=== PATIENT | female | born 1960 | race Caucasian/White ===

== ENCOUNTER 2024-04-17 14:16 | Emergency (ER) | payer OTHER, SELFPAY ==
[2024-04-17 14:35] VITALS: BP 121/86
[2024-04-17 15:04] LABS: % Eosinophils 5.5 % (0-6); % Immature Granulocytes 0.2 % (0-0.5); % Lymphocytes 41.3 % (20.5-51.1); % Monocytes 7.9 % (1.7-9.3); % Neutrophils 44.1 % (42.2-75.2); Absolute Basophils 0.1 10^3/uL (0-0.2); Absolute Eosinophils 0.5 10^3/uL (0-0.7); Absolute Lymphocytes 3.8 10^3/uL (1.2-3.4); Absolute Monocytes 0.7 10^3/uL (0.1-0.6); Hematocrit 40.3 % (37.0-47.0); Hemoglobin 13.2 g/dL (12.0-16.0); Mean Corp Hgb Conc. 32.8 g/dL (33.0-37.0); Mean Corpuscular Hgb 28.9 pg (27.0-31.0); Mean Corpuscular Volume 88.2 fL (81.0-99.0); Mean Platelet Volume 8.9 fL (7.4-10.4); Nucleated Red Blood Cells % 0 %; Platelet Count 355 10^3/uL (130-400); Red Blood Cell Count 4.57 10^6/uL (4.20-5.40); Red Cell Dist. Width 12.4 % (11.5-14.5); White Blood Cell Count 9.2 10^3/uL (4.8-10.8)
[2024-04-17 15:13] LABS: ALT (SGPT) 35 U/L (0-35); AST (SGOT) 50 U/L (14-36); Albumin 4.7 g/dl (3.5-5.0); Alkaline Phosphatase 72 U/L (38-126); Blood Urea Nitrogen 17 mg/dl (7-17); Calcium 9.8 mg/dl (8.4-10.2); Carbon Dioxide 28 mmol/L (22-30); Chloride 102 mmol/L (98-107); Glucose 97 mg/dl (70-99); Potassium 4.9 mmol/L (3.5-5.1); Sodium 139 mmol/L (135-145); Total Bilirubin 0.7 mg/dl (0.2-1.3); Total Protein 7.3 g/dl (6.3-8.2); eGFR > 60.00
[2024-04-17 16:50] VITALS: BP 126/76
[2024-04-17 21:56] VITALS: BMI 34.4
--- NOTE | 2024-04-17 21:58 | EDRN ---
Pt has had a wound on L great toe for 1 month. Pt is not on an abx. Pt says it started getting worse on the . Pt is diabetic. Pt stopped wearing certain boot that caused the wound. Pt says it is excruciatingly painful. No fever/chills.
[2024-04-17 22:02] VITALS: BP 128/76
--- NOTE | 2024-04-17 23:14 | ED.SKININJ ---
HPI-Injury
General
Chief Complaint: Skin Problem
Source: patient
Exam Limitations: none
Time Seen by Provider: 04/17/24 19:13
Nursing documentation reviewed up to this point in time: agreed with
History of Present Illness-Injury
Is this injury a work related problem?: No
Is pt an associate of [facility]?: No
Initial Injury comments:
Patient to ED with complaint of painful wouond to lateral left great toe. Wound developed approx 1 mos ago. States she recently moved here from [facility]. No PCP here. Denies fever/chills. Brought self to ED for eval
Past History
Past History
ED Past Medical History: COPD, NIDDM and Hypothyroidism
Review of Systems
Review of Systems
Allergies reviewed?: Yes
All Other Systems: ROS reviewed and negative except as documented in HPI and ROS
Constitutional: Reports no symptoms
EENT: Reports no symptoms
Respiratory: Reports no symptoms
Cardiac: Reports no symptoms
Musculoskeletal: Reports joint pain (Pain to left distal great toe.)
Skin: Reports other (1cm open wouond left lateral great toe. No drainage noted. Mild erythema surrounding ulceration. Would culture sent.)
Neurological: Reports no symptoms
Psychiatric: Reports no symptoms
Phy Exam
General Physical Exam
General Presentation: well appearing and no apparent distress
General age: appears stated age
General Skin: warm and dry
General Habitus: normal
General Mental: alert
Musculoskeletal Exam
Musculoskeletal Exam: full ROM and neuro vasc intact
Skin Exam
Skin Exam: warm/dry and other (1cm open wound left lat great toe. No drainage. MIld erythema surrounding wound WOund culture obtained)
Psychiatric Exam
Psychiatric Exam: normal mood/affect
Course
Orders/Labs/Results
Orders:
Orders
04/17/24 14:48
CMP [Comprehensive Metabolic Panel] Urgent
Complete Blood Count/With Diff Urgent
04/17/24 22:06
Foot, Left 3 View [CR Foot - Left Min 3 Views] Urgent
Comment:
Reason For Exam: cellulitis left 1st and 2nd toe
04/17/24 22:19
Wound Culture [Wound/Abscess/Other Culture] Urgent
MARI Source: Toe
Specimen Description:
Date Specimen was Collected: 04/17/24
Time Specimen was Collected: 22:09
04/17/24 23:02
Clindamycin HCl [Cleocin] 300 mg PO NOW STA
Abnormal Lab Results
04/17/24
14:48
MCHC 32.8 L g/dL
(33.0-37.0)
Absolute Lymphs (auto) 3.8 H 10^3/uL
(1.2-3.4)
Absolute Monos (auto) 0.7 H 10^3/uL
(0.1-0.6)
AST 50 H U/L
(14-36)
04/17/24 14:48
04/17/24 14:48
Vital Signs
Initial and Last Documented VS:
Initial Vital Signs
Temp Pulse Resp BP Pulse Ox
98.3 F 85 18 121/86 98
04/17/24 14:35 04/17/24 14:35 04/17/24 14:35 04/17/24 14:35 04/17/24 14:35
Last Documented Vital Signs
Temp Pulse Resp BP Pulse Ox
98.3 F 72 16 128/76 96
04/17/24 22:02 04/17/24 22:02 04/17/24 22:02 04/17/24 22:02 04/17/24 22:02
*Critical Care Note
Total Time (30-74mins, 75-104mins- exclusive of procedures): Not Applicable
Update Note
Update Note:
Patient to ED for eval of left great toe wound. Ulceration developed approx 1 mos ago. SHe does not have a healthcare provider here, has not had wound evaluated. She is afebrile. WBC normal. No drainage from wound. NO recent antibiotics.
Clindamycin given in ED, rx provided for her. SHe is discharged home and will follow up with wound care center. Given instructions on s/s to return to ED and she is agreeable to plan.
ED Attending Note
-
Portions of this chart may have been created with voice recognition software.� Occasional wrong word or��sound alike� substitutions may have occurred due to the inherent limitations of voice recognition software.
Discharge Plan
Departure
Patient Disposition: Home (Routine Discharge)
Date of Disposition: 04/17/24
Time of Disposition: 23:03
Patient with high blood pressure during this ER visit?: No
Condition: Good
Covid-19: Not Applicable
Discharge Problem:
Non-healing open wound of toe
Instructions: Wound Care (DC), [facility]
Prescriptions:
New
clindamycin HCl 300 mg capsule
300 mg PO TID Qty: 30 0RF
No Action
gabapentin 600 mg Tablet
600 mg PO TID
divalproex 500 mg Tablet,Delayed Release (Dr/Ec)
500 mg PO BID
aspirin 81 mg Tablet,Delayed Release (Dr/Ec)
81 mg PO DAILY
xyhtrmfgpu-ufjhdcywuczqb-lpsc 50-325-40 mg Tablet
1 tab PO BID PRN (Reason: headache)
hydrocodone-acetaminophen 7.5-325 mg Tablet
1 tab PO TID PRN (Reason: pain)
buspirone 10 mg Tablet
10 mg PO TID
mupirocin 2 % Ointment
1 applic TOPICAL BID PRN (Reason: wound)
hydroxychloroquine 200 mg Tablet
200 mg PO BID
ondansetron 4 mg Tablet,Disintegrating
4 mg PO BID
levothyroxine 112 mcg Tablet
112 mcg PO DAILY
duloxetine 60 mg Capsule,Delayed Release(Dr/Ec)
60 mg PO BID
tramadol 200 mg Tablet Extended Release 24 Hr
200 mg PO DAILY
Combivent Respimat 20-100 mcg/actuation Mist
1 puff INHALATION Q6H PRN (Reason: sob)
Nurtec ODT 75 mg Tablet,Disintegrating
75 mg PO ONCE PRN (Reason: headache)
Referrals:
Wound Care Center [Outside] - Call in 1-3 days for appt
UNKNOWN,NO INTERVIEW [Unknown Provider] -
Activity Restrictions/Additional Instructions:
Return to the emergency department immediately for any changes in/worsening of your symptoms.
Interventions
Interventions:
*Risk Screen - Suicide Last Done: 04/17/24 14:35
*General Assessment Last Done: 04/17/24 14:35
*Neglect/Abuse Screening Last Done: 04/17/24 14:35
*ED COVID-19 Vaccine History Last Done: 04/17/24 14:35
*Nursing Disposition Last Done: 04/18/24 01:05
ED-Skin Assessment Last Done: 04/17/24 22:10
Discharge Date and Time
Discharge Date/Time: 04/18/24 01:05
Print Language: TONGAN
[2024-04-17] MEDS: CLEOCIN 300 MG PO (23:25)
--- NOTE | 2024-04-17 23:35 | EDRN ---
Pt given crackers to eat. L great toe dressed with abx ointment, telfa and gauze per Debbie Mora [employer].
--- NOTE | 2024-04-18 00:12 | EDRN ---
Pt moved from [place] to live here with her grandson. Pt says her grandson does not drive and has no license. She says there are no family or friends to pick her up. Suggested she ask pt's grandson to arrange an Uber or Lyft. Pt says her
insurance kicks in after midnight. Pt got dressed, ambulatory in room. Went in to speak with pt about d/c transportation and she said her insurance company will arrange and pay for an Uber to take her home if her insurance can confirm that she is
going from the hospital home. Told pt this RN will confirm with insurance company if she can get someone on the telephone. Pt attempting to get an insurance rep on the telephone.
--- NOTE | 2024-04-18 01:05 | EDRN ---
Pt was unable to speak with someone at insurance company and said their transportation department does not have any record of her. Pt may have more luck in day time calling the insurance company. Pt has an [employer] jenna but will not order one because
she says she does not have money. Pt aware ambulance transport will not be paid for by her insurance company. Suggested pt call her grandson and ask him if he has a friend/neighbor to pick her up but pt declines to do so 'he is to the world.'
Pt given boxed turkey sandwich and walked out to waiting room.
== END 2024-04-18 01:05 | disposition home or self-care (01) ==
LOC: EMR 14:16
PROVIDERS: Emergency Medicine; EMERGENCY PHYSICIAN Emergency Medicine; FAMILY PHYSICIAN Student in an Organized Health Care Education/Training Program
DX: S91.102A Unspecified open wound of left great toe without damage to nail, initial encounter (principal); X58.XXXA Exposure to other specified factors, initial encounter; J44.9 Chronic obstructive pulmonary disease, unspecified; E11.9 Type 2 diabetes mellitus without complications; E03.9 Hypothyroidism, unspecified
CPT/HCPCS: 99283; 73630; 80053; 85025; 87070; 87077; 87147; 87205

== ENCOUNTER → 2024-04-30 12:40 | Outpatient (REF) | payer OTHER, SELFPAY | LOC: WOUND 12:40 | PROVIDERS: ATTENDING PHYSICIAN Surgery | DX: L97.524 Non-pressure chronic ulcer of other part of left foot with necrosis of bone (principal); M14.672 Charcot's joint, left ankle and foot; E11.610 Type 2 diabetes mellitus with diabetic neuropathic arthropathy; I73.9 Peripheral vascular disease, unspecified; I87.2 Venous insufficiency (chronic) (peripheral); E11.621 Type 2 diabetes mellitus with foot ulcer | CPT/HCPCS: 88304; 88311; 11044; 99204 ==

== ENCOUNTER → 2024-05-08 14:02 | Outpatient (REF) | payer OTHER, SELFPAY | LOC: WOUND 14:02 | PROVIDERS: ATTENDING PHYSICIAN Surgery | DX: L97.524 Non-pressure chronic ulcer of other part of left foot with necrosis of bone (principal); M14.672 Charcot's joint, left ankle and foot; I73.9 Peripheral vascular disease, unspecified; I87.2 Venous insufficiency (chronic) (peripheral); E11.621 Type 2 diabetes mellitus with foot ulcer | CPT/HCPCS: 99213 ==

== ENCOUNTER → 2024-05-15 06:34 | Outpatient (REF) | payer OTHER, MEDICAID, SELFPAY | LOC: RAD 06:34 | PROVIDERS: ATTENDING PHYSICIAN Surgery; FAMILY PHYSICIAN Student in an Organized Health Care Education/Training Program | DX: L97.524 Non-pressure chronic ulcer of other part of left foot with necrosis of bone (principal) | CPT/HCPCS: 93922; 93971 ==

== ENCOUNTER → 2024-05-15 08:23 | Outpatient (REF) | payer OTHER, MEDICAID, SELFPAY | LOC: WOUND 08:23 | PROVIDERS: ATTENDING PHYSICIAN Surgery | DX: L97.524 Non-pressure chronic ulcer of other part of left foot with necrosis of bone (principal); M14.672 Charcot's joint, left ankle and foot; M86.60 Other chronic osteomyelitis, unspecified site; E11.610 Type 2 diabetes mellitus with diabetic neuropathic arthropathy; I73.9 Peripheral vascular disease, unspecified; I87.2 Venous insufficiency (chronic) (peripheral); E11.621 Type 2 diabetes mellitus with foot ulcer | CPT/HCPCS: 93922; 93971; 99213 ==